=== PATIENT | male | born 1980 | race Hispanic/Latino ===

== ENCOUNTER 2019-06-07 | Emergency (ER) | payer BC ==
[2019-06-07] MEDS ORDERED: SIMVASTATIN40 MG PO (07:11)
[2019-06-07] MEDS ORDERED: CYCLOBENZAPR5 MG PO (07:16)
[2019-06-07] MEDS ORDERED: VOLTAREN1%GEL TOP (07:17)
== END 2019-06-07 07:42 | disposition home or self-care (01) | DRG 552 ==
DX: M54.5 Low back pain (principal); M79.605 Pain in left leg